=== PATIENT | female | born 1935 ===

== ENCOUNTER 2017-10-09 14:27 | Inpatient (IN) | payer MEDICARE ==
[~2017-10-09] VITALS: Ht 162.6 cm; Wt 58.1 kg
[2017-10-09 14:10] VITALS: BP 126/68
[2017-10-09] MEDS ORDERED: Z GUARD REMEDY PASTE 57 GM TUBE TOP PRN (14:45)
[2017-10-09] MEDS ORDERED: [UNRECOGNIZED DRUG - CODE] IV (16:41)
[2017-10-09] MEDS ORDERED: ACET-2154 PO (16:41)
[2017-10-09] MEDS ORDERED: HYDR20VI4 IVP (16:41)
[2017-10-09] MEDS ORDERED: MUPI22OI2 TP (16:41)
[2017-10-09] MEDS ORDERED: BALS60OI TP (16:41)
[2017-10-09] MEDS ORDERED: LEVE500P IV (16:41)
[2017-10-09] MEDS ORDERED: ONDA4TAB5 PO (16:41)
[2017-10-09] MEDS ORDERED: AMLO5TAB4 PO (16:41)
--- NOTE | 2017-10-09 17:32 | NUR ---
pt received from [facility] at 1410 in a gurney. pt vitals assessed and stable. received report from Laure RUDOLPH. pt had an fall incident, hitting her head resulting subdural hematoma. MRI was done a week ago showing subdural hematoma. pt fell on left side resulting left eye, hip, and head bruise. pt assessed and showed sever weakness on all four extremities. pt has aphasia and has swallowing difficulty. pt has a Hx of CVA Aphasia, Hypertension, dementia, left ankle fracture and DVT. Umbrella IVC filter placed on 10/08 due to pt having DVT. IVC intact no signs of bleeding. pt is allergic to dust mites. pt ambulated 2 feet with therapy, and pt is wearing afo on both feet. pt is incontinent during admission. diaper placed. pt has a son that stays overnight. all med recon and belongings done. placed in chart. photos taken and placed in chart. pt is known to have bradycardia but no recommendations for Pacemaker needed as per rehabilitation medicine physician. bed alarm on because pt seen to be getting up. instructed pt not to get up. pt understands but cannot verbalize needs at the time. will continue to monitor.
--- NOTE | 2017-10-09 18:45 | NUR ---
md penn made aware of meds for recon. awaiting for meds to be continued.
[2017-10-09 20:00] VITALS: BP 133/67
--- NOTE | 2017-10-09 21:41 | NUR ---
Called [facility] to f/u with patient medications. Dr. Emery financial institution manager. Awaiting call back at this time.
--- NOTE | 2017-10-09 21:50 | NUR ---
Dr. Emery called back and read back medications to MD. Will fax home meds form to Pharmacy for med reconciliation.
[2017-10-10 07:09] LABS: BASOPHILS % (AUTO) 0.4 % (0.0-2.0); EOSINOPHILS # (AUTO) 0.1 K/uL (0.0-0.7); EOSINOPHILS % (AUTO) 0.6 % (0.0-7.0); HEMATOCRIT 32.9 % (31.2-41.9); HEMOGLOBIN 11.4 g/dL (10.9-14.3); LYMPHOCYTES % (AUTO) 10.8 % (20.5-51.5); MEAN CORPUSCULAR HEMOGLOBIN 32.4 uug (24.7-32.8); MEAN CORPUSCULAR HGB CONC 35 g/dL (32.3-35.6); MEAN CORPUSCULAR VOLUME 93.3 fL (75.5-95.3); MONOCYTES % (AUTO) 11.1 % (0.0-11.0); NEUTROPHILS % (AUTO) 77.1 % (38.5-71.5); PLATELET COUNT (AUTO) 194 K/uL (179-408); RED BLOOD CELL COUNT(AUTO) 3.52 MIL/uL (3.63-4.92); WHITE BLOOD COUNT (AUTO) 9.1 K/uL (3.8-11.8)
[2017-10-10] MEDS ORDERED: HYDR-4075 PO (07:14)
[2017-10-10] MEDS ORDERED: LEVE500T20 PO (07:14)
[2017-10-10] MEDS ORDERED: ONDANSETRON HCL 4 MG TABLET PO PRN (07:15)
[2017-10-10] MEDS ORDERED: ACETAMINOPHEN 325 MG TABLET PO PRN (07:15)
[2017-10-10] MEDS ORDERED: HOME MED MISCELLANEOUS XX SCH (07:15)
[2017-10-10] MEDS ORDERED: hydrALAZINE HCL 10 MG TABLET PO PRN (07:15)
[2017-10-10 07:20] LABS: CARBON DIOXIDE 24 mmol/L (21-32); CHLORIDE 103 mmol/L (98-107); CHOLESTEROL 134 mg/dL (<200); CREATININE 0.7 mg/dL (0.6-1.3); GLUCOSE 121 mg/dL (74-106); HDL CHOLESTEROL 46 mg/dL (40-60); MAGNESIUM 1.7 mg/dL (1.8-2.4); PHOSPHOROUS 3.1 mg/dL (2.5-4.9); POTASSIUM 3.8 mmol/L (3.5-5.1); TRIGLYCERIDES 73 MG/DL (30-150); UREA NITROGEN, BLOOD 14 mg/dL (7-18)
[2017-10-10 08:57] VITALS: BP 174/72
[2017-10-10] MEDS ORDERED: MUPIROCIN 2% OINT 22 GM TUBE TP SCH (09:00)
[2017-10-10] MEDS: LEVETIRACETAM 500 MG TABLET PO SCH ×2 (09:24→17:37)
[2017-10-10] MEDS: AMLODIPINE 5 MG TABLET PO SCH (09:25)
--- NOTE | 2017-10-10 11:52 | NUR ---
Patient noted resting in bed , family (son) noted assisting with dressing/AM care, no facial cues of pain, patient is none verbal, no signs of distress noted, call light in reach, bed locked and in lowest position, all AM medications taken, bed alarm in place, all needs met at this time
--- NOTE | 2017-10-10 13:43 | NUR ---
INTERDISCIPLINARY TEAM CONFERENCE
[2017-10-10] MEDS: BENAZEPRIL HCL 5 MG TABLET PO SCH (14:42)
--- NOTE | 2017-10-10 19:30 | NUR ---
Pt resting comfortably in bed. Son at bedside. No acute distress noted. No signs or facial cues of pain. Safety measures maintained. Bed alarm on. Call light and personal belongings within reach. Will continue to monitor.
[2017-10-10] MEDS: MAGNESIUM OXIDE 400 MG TABLET PO SCH (20:11)
[2017-10-10 20:33] VITALS: BP 118/61
--- NOTE | 2017-10-11 06:04 | NUR ---
Pt slept comfortably at night. Meds given per MD's order. Pt has to be assisted when taking meds. Turned and repositioned. Changed diaper as needed. All needs attended to promptly. Will endorse to day shift RN. Continue to monitor.
[2017-10-11 08:00] VITALS: BP 130/64
--- NOTE | 2017-10-11 08:00 | NUR ---
patient noted resting bed with eyes closed, no facial cues of pain, no signs of distress noted, call light in reach, bed locked and in lowest position
[2017-10-11] MEDS: LEVETIRACETAM 500 MG TABLET PO SCH ×2 (08:47→21:25)
[2017-10-11] MEDS: AMLODIPINE 5 MG TABLET PO SCH (08:47)
[2017-10-11] MEDS: BENAZEPRIL HCL 5 MG TABLET PO SCH (08:47)
--- NOTE | 2017-10-11 18:17 | NUR ---
PATIENT LEFT FACILITY WITH FAMILY VIA WHEELCHAIR AND PRIVATE CARE AT 1630 FOR 4 HOUR LEAVE PASS, ORDER APPROVED BY MD BLOUNT
--- NOTE | 2017-10-11 18:35 | NUR ---
patient left facility before administration of keppra could be given, will endorse to scene shifter nurse
--- NOTE | 2017-10-11 21:07 | NUR ---
Received patient from family. Patient in no acute distress. Ushered patient safely to room. Placed safety in bed. Vital signs stable. Noted facial and left hip bruising. Patient has expressive aphasia. 2100 Medication given. Keppra was given late because patient went out with family. Safety initiated. Call light within reach. Bed alarm on. Bed is in low and locked position. Will closely monitor.
[2017-10-11] MEDS: MAGNESIUM OXIDE 400 MG TABLET PO SCH (21:25)
[2017-10-11 21:31] VITALS: BP 124/78
--- NOTE | 2017-10-12 05:41 | NUR ---
Patient slept intermittently t/o shift. No acute distress noted. Vital signs stable. Safety and comfort measures maintained t/o shift. All meds given as ordered. All needs met.
[2017-10-12 08:00] VITALS: BP 122/62
--- NOTE | 2017-10-12 08:30 | NUR ---
Received patient, awake, alert x1-2. Still non-verbal. Assisted with feeding. No S/S of aspiration, tolerated diet well. Not in apparent pain or distress.
[2017-10-12] MEDS: BENAZEPRIL HCL 5 MG TABLET PO SCH (08:49)
[2017-10-12] MEDS: AMLODIPINE 5 MG TABLET PO SCH (08:49)
[2017-10-12] MEDS: LEVETIRACETAM 500 MG TABLET PO SCH ×2 (08:49→18:12)
--- NOTE | 2017-10-12 10:54 | NUR ---
Patient resting in bed comfortably. Baseline LOC, bed alarm on, in locked position. Call light within reach.
--- NOTE | 2017-10-12 13:26 | NUR ---
Son requesting patient to go out on pass for family reunion, since one family member will be coming out of state. Discussed risks with son. Son aware and still wants to take patient to reunion. Informed Dr. David of request and Dr edd king on pass for for 4 hours. Forms completed by son.
--- NOTE | 2017-10-12 13:45 | NUR ---
Out on pass accompanied by son per wheel chair. Vital signs stable, son aware of 4 hours limit.
--- NOTE | 2017-10-12 14:15 | NUR ---
Received mid shift report from RONNI Zarate. Patient is out on pass for family reunion. ETA of patient to ARU is 1730.
--- NOTE | 2017-10-12 18:05 | NUR ---
Patient back to the unit, accompanied/transported by son/family via wheelchair. Patient is alert, in no distress. Supervised dinner intake, swallowing precaution, no aspiration noted. Safety measures in place, bed alarm on.
[2017-10-12 19:30] VITALS: BP 114/51
--- NOTE | 2017-10-12 20:30 | NUR ---
Received pt lying on bed comfortably, asleep but arouses easily with no signs/symptoms of distress noted. No facial grimacing or signs of pain. Breathing even and unlabored with normal respirations. All due meds given as ordered and well tolerated, no signs of aspiration. Call light placed within reach. Vital signs stable. Side rails up x2. Bed locked and in lowest position. All needs anticipated.
[2017-10-12] MEDS: MAGNESIUM OXIDE 400 MG TABLET PO SCH (20:40)
--- NOTE | 2017-10-13 06:09 | NUR ---
patient slept well throughout the shift with no signs of any distress. No complaints of pain or discomfort. No SOB. Call light placed within reach. Kept clean, dry and comfortable. All needs attended
[2017-10-13 07:25] VITALS: BP 126/62
--- NOTE | 2017-10-13 08:03 | NUR ---
Received patient awake in bed. Baseline LOC, alert x1, obeys commands. Not in apparent distress, no pain noted. Will continue to monitor.
[2017-10-13] MEDS: AMLODIPINE 5 MG TABLET PO SCH (08:37)
[2017-10-13] MEDS: LEVETIRACETAM 500 MG TABLET PO SCH ×2 (08:37→17:51)
[2017-10-13] MEDS: BENAZEPRIL HCL 5 MG TABLET PO SCH (08:37)
[2017-10-13] MEDS: BOOST PLUS 237 ML LIQUID (RICH CHOCOLATE) PO SCH (17:53)
--- NOTE | 2017-10-13 18:05 | NUR ---
With family at bed side, tolerated dinner well. No S/S of aspiration
--- NOTE | 2017-10-13 19:25 | NUR ---
Pt resting comfortably in bed. AAO x1. Family at bedside. Family concern about breathing. VS stable. Lungs clear through auscultation. Family stated that they fed the pt heavy meal, was eating fast, and lay down flat after. Positioned the bed to semi- chacon's. Education provided to family and pt about aspiration precaution. No acute distress noted. No c/o pain or discomfort. Safety measures maintained. Call light and personal belongings within reach. Will continue to monitor.
[2017-10-13 20:15] VITALS: BP 127/65
[2017-10-13] MEDS: MAGNESIUM OXIDE 400 MG TABLET PO SCH (21:17)
--- NOTE | 2017-10-14 05:50 | NUR ---
Pt slept comfortably at night. VSS. Meds given per MD's order. Aspiration precaution. Diaper changed as needed. All needs attended to promptly. Will endorse to day shift RN. Continue to monitor.
[2017-10-14 07:25] VITALS: BP 106/58
[2017-10-14] MEDS: AMLODIPINE 5 MG TABLET PO SCH (08:44)
[2017-10-14] MEDS: BENAZEPRIL HCL 5 MG TABLET PO SCH (08:44)
[2017-10-14] MEDS: LEVETIRACETAM 500 MG TABLET PO SCH ×2 (08:44→17:07)
[2017-10-14] MEDS: BOOST PLUS 237 ML LIQUID (RICH CHOCOLATE) PO SCH ×2 (08:46→17:07)
--- NOTE | 2017-10-14 12:56 | NUR ---
WOUND CARE CONSULT: PT PRESENTS WITH DEEP TISSUE INJURY WHICH IS INTACT, TO SACRUM, PRESENT ON ADMISSION PHOTO. RECOMMENDATIONS MADE FOR SKIN PROTECTION AND WOUND CARE. DISCUSSED WITH NURSING STAFF. CURRENT ZACK SCORE IS 14. PT HAS LOWER EXTREMITY BRACE WHICH SHE WEARS WHEN UP WITH P.T. BILATERAL CALLUSES TO LATERAL FEET NOTED. WILL SEE PRN. GUTHRIE IN AGREEMENT WITH PLAN OF CARE. Addendum: 10/14/17 at 1258 by ARTIE CASTRO RN Amended: Links added.
--- NOTE | 2017-10-14 19:45 | NUR ---
Received patient in bed with family at bedside. Vital signs taken and recorded. No signs of any acute respiratory distress. Breathing even and nonlabored. Pertinent assessment done. Safety measures provided. Call light in reach. will monitor the patient.
[2017-10-14 20:58] VITALS: BP 135/75
[2017-10-14] MEDS: MAGNESIUM OXIDE 400 MG TABLET PO SCH (21:19)
[2017-10-15 08:00] VITALS: BP 148/68
[2017-10-15] MEDS: LEVETIRACETAM 500 MG TABLET PO SCH ×2 (08:51→21:30)
[2017-10-15] MEDS: BENAZEPRIL HCL 5 MG TABLET PO SCH (08:51)
[2017-10-15] MEDS: PATIENT MAY USE OWN MED- MD OK PO SCH (08:52)
[2017-10-15] MEDS: BOOST PLUS 237 ML LIQUID (RICH CHOCOLATE) PO SCH ×2 (08:52→21:32)
[2017-10-15] MEDS: AMLODIPINE 5 MG TABLET PO SCH (08:59)
--- NOTE | 2017-10-15 10:26 | NUR ---
PATIENT NOTED RESTING I BED WITH EYES CLOSED, NO FACIAL CUES OF PAIN NO SIGNS OF DISTRESS NOTED, CALL LIGHT IN REACH, BED LOCKED AND IN LOWEST POSITION, X2 BED RAILS, ALL NEEDS MET AT THIS TIME
--- NOTE | 2017-10-15 11:00 | NUR ---
While being assisted by PT, OT, and TEST CONDUCTOR from shower chair to wheelchair, patient presented with skin tear to left forearm, steri strips place as well as fadumoed MD Boo lindsey and family notified of findings
--- NOTE | 2017-10-15 17:42 | NUR ---
patient out on pass with family at 1630, expected back at 2029, via wheelchair and private car
--- NOTE | 2017-10-15 19:56 | NUR ---
Pt still out on pass at this time
[2017-10-15 21:30] VITALS: BP 134/66
[2017-10-15] MEDS: MAGNESIUM OXIDE 400 MG TABLET PO SCH (21:30)
--- NOTE | 2017-10-15 21:40 | NUR ---
Pt came back in the unit at 2110 accompanied by family. Meds scheduled at 1700 and 2100 given. Vital signs stable. No acute distress noted. No c/o pain or discomfort. Safety measures maintained. Call light and personal belongings within reach. Will continue to monitor.
--- NOTE | 2017-10-16 05:53 | NUR ---
Pt slept comfortably at night. VSS. Meds given per MD's order. All needs attended to promptly. Turned and repositioned. Diaper changed as needed. Will endorse to day shift RN. Continue to monitor.
--- NOTE | 2017-10-16 07:26 | NUR ---
Patient noted resting in bed with eyes closed arouses easily, no facial cues of pain noted, no distress noted, call light in reach, bed locked and in lowest position, x 2 bed rails, bed alarm in place, all needs met at this time
[2017-10-16 08:27] VITALS: BP 112/59
[2017-10-16] MEDS: PATIENT MAY USE OWN MED- MD OK PO SCH (08:29)
[2017-10-16] MEDS: BENAZEPRIL HCL 5 MG TABLET PO SCH (08:29)
[2017-10-16] MEDS: LEVETIRACETAM 500 MG TABLET PO SCH ×2 (08:29→17:17)
[2017-10-16] MEDS: BOOST PLUS 237 ML LIQUID (RICH CHOCOLATE) PO SCH ×2 (08:30→17:18)
[2017-10-16] MEDS: AMLODIPINE 5 MG TABLET PO SCH (08:30)
--- NOTE | 2017-10-16 13:03 | NUR ---
patient noted making a rattling noise while eating breakfast, speech therapist notified with orders to put patient on nectar thick liquids, MD Ricardo notified with orders to do a 1 view chest X-Ray, will continue to monitor
[2017-10-16 20:00] VITALS: BP 117/76
--- NOTE | 2017-10-16 20:00 | NUR ---
Pt sitting down at bedside. Daughter in the room. Dr. David made rounds. Pt's daughter notified MD that pt seems to have swelling around the back. Went to look at the back and Dr. David said that it is a fat, not swelling. No acute distress noted. No signs of pain or discomfort. Aspiration precaution. On thickened liquids. Safety measures maintained. Call light and personal belongings within reach. Will continue to monitor.
[2017-10-16] MEDS: MAGNESIUM OXIDE 400 MG TABLET PO SCH (20:31)
--- NOTE | 2017-10-17 05:28 | NUR ---
Pt slept at night. Meds given per MD's order. All needs attended to promptly. Diaper changed as needed. Aspiration precaution maintained. On nectar thick liquids. Will endorse to day shift RN. Continue to monitor.
[2017-10-17 08:00] VITALS: BP 141/58
[2017-10-17] MEDS: BOOST PLUS 237 ML LIQUID (RICH CHOCOLATE) PO SCH ×2 (08:55→17:29)
[2017-10-17] MEDS: LEVETIRACETAM 500 MG TABLET PO SCH ×2 (09:00→17:29)
[2017-10-17] MEDS: BENAZEPRIL HCL 5 MG TABLET PO SCH (09:02)
[2017-10-17] MEDS: AMLODIPINE 5 MG TABLET PO SCH (09:02)
[2017-10-17] MEDS: PATIENT MAY USE OWN MED- MD OK PO SCH (09:03)
--- NOTE | 2017-10-17 10:37 | NUR ---
SBAR report received, board updated. Pt assessed, no acute distress noted. Diaper changed, dressed, and compression socks applied. Pt assisted to sit up in wheelchair to eat breakfast. Pt compliant with routine morning medications, aspiration precautions in place, and on nectar thick liquids. Call light placed within reach. Pt demonstrates willingness to comply with therapies as scheduled. All comfort and safety measures implemented. Will continue to monitor.
--- NOTE | 2017-10-17 13:47 | NUR ---
INTERDISCIPLINARY TEAM CONFERENCE
--- NOTE | 2017-10-17 19:01 | NUR ---
With son at bedside. No in apparent pain. Tolerated dinner well. No s/s of aspiration
[2017-10-17 19:30] VITALS: BP 129/54
[2017-10-17] MEDS: MAGNESIUM OXIDE 400 MG TABLET PO SCH (20:20)
--- NOTE | 2017-10-17 20:30 | NUR ---
Received pt lying on bed comfortably, asleep with no signs/symptoms of distress noted. No facial grimacing or any signs of pain noted. No SOB. All due meds given as ordered and well tolerated with no signs of aspiration noted. Safety and fall precautions observed and maintained. Call light within reach. All needs attended. Will continue to monitor.
--- NOTE | 2017-10-18 05:28 | NUR ---
Patient slept well throughout the shift with no apparent distress noted. No signs of pain or discomfort. Frequently checked for safety. Incontinent care rendered. Call light placed within reach. All needs attended.
[2017-10-18 08:13] VITALS: BP 147/76
[2017-10-18] MEDS: LEVETIRACETAM 500 MG TABLET PO SCH ×2 (08:53→17:38)
[2017-10-18] MEDS: AMLODIPINE 5 MG TABLET PO SCH (08:54)
[2017-10-18] MEDS: PATIENT MAY USE OWN MED- MD OK PO SCH (08:54)
[2017-10-18] MEDS: BENAZEPRIL HCL 5 MG TABLET PO SCH (08:54)
[2017-10-18] MEDS: BOOST PLUS 237 ML LIQUID (RICH CHOCOLATE) PO SCH ×2 (08:55→17:42)
--- NOTE | 2017-10-18 14:31 | NUR ---
Patient is an 82 y/o female with PMH of right ankle fracture,old CVA,DVT,HTN present due to fall, Pt was medically stable and transferred to ARU due to functional impairment and gait dysfunction po intake is good,pt is eating 75-100% of meals,per MD order pt is receiving boost BID,on nectar thick diet, spoke with the nurse, about the nectar thick pks to mix with boost, RN is aware Anthropometry:current wt is 128lb,BMI 22-wnl bowel sound present /incontinent skin: left orbital bruising,right hand scab,left hip bruise labs:10/10 RBC-3.5(l),NA-134(l),glucose-121(h),magnesium-1.7(l) medication: [facility], No nutrition diagnosis at this time, will monitor PO intake,wt, and new labs Addendum: 10/18/17 at [address] Amended: Links added.
--- NOTE | 2017-10-18 18:28 | NUR ---
Pt ate dinner with daughter in dinning room. Pt compliant with all routine medication administration. All needs attended to. Will continue to monitor and endorse to oncoming diesel roller operator.
--- NOTE | 2017-10-18 19:30 | NUR ---
Received patient in bed. Alert and responsive. Patient responds verbally, but unable to understand what she is trying to say. No c/o pain and discomfort. No acute distress. No SOB. On RA. Kept clean and dry. Compression stockings are on. all needs attended to promptly. Call light within reach. Will continue to monitor.
[2017-10-18] MEDS: MAGNESIUM OXIDE 400 MG TABLET PO SCH (21:48)
--- NOTE | 2017-10-19 06:22 | NUR ---
Patient slept comfortably throughout the night. No c/o pain and discomfort. No facial grimacing noted. No acute distress. No SOB. Diaper changed. Pericare provided. Kept clean and dry. All needs attended to promptly. Call light within reach. Will continue to monitor.
[2017-10-19 07:30] VITALS: BP 139/69
[2017-10-19] MEDS: BENAZEPRIL HCL 5 MG TABLET PO SCH (08:56)
[2017-10-19] MEDS: LEVETIRACETAM 500 MG TABLET PO SCH ×2 (08:56→21:22)
[2017-10-19] MEDS: BOOST PLUS 237 ML LIQUID (RICH CHOCOLATE) PO SCH ×2 (08:57→17:00)
[2017-10-19] MEDS: PATIENT MAY USE OWN MED- MD OK PO SCH (09:07)
[2017-10-19] MEDS: AMLODIPINE 5 MG TABLET PO SCH (09:07)
--- NOTE | 2017-10-19 18:03 | NUR ---
family called. 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 family tried contacting company. company does not responce. phone that was lost was a [employer]. phone number [phone]. will try to contact.
--- NOTE | 2017-10-19 19:00 | NUR ---
Received report from day shift nurse. Patient still OOP at this time. Awaiting return for patient.
--- NOTE | 2017-10-19 19:30 | NUR ---
Patient returned from OOP with family in stable condition. Assisted back to bed. Vital signs stable. Diaper changed. Pericare provided. Kept clean and dry. All needs attended to promptly. Call light within reach. Will continue to monitor.
[2017-10-19 20:00] VITALS: BP 129/77
--- NOTE | 2017-10-19 21:12 | NUR ---
1700 Keppra given at this time because was not given afternoon dose. Family is aware and requested it to be given. Patient tolerated medication.
[2017-10-19] MEDS: MAGNESIUM OXIDE 400 MG TABLET PO SCH (21:22)
--- NOTE | 2017-10-20 07:00 | NUR ---
Patient slept comfortably throughout the night. No c/o pain and discomfort. No facial grimacing noted. No acute distress. No SOB. Pericare care provided. Kept clean and dry. All needs attended to promptly. Call light within reach. Will continue to monitor.
[2017-10-20] MEDS: PATIENT MAY USE OWN MED- MD OK PO SCH (09:00)
[2017-10-20] MEDS: LEVETIRACETAM 500 MG TABLET PO SCH ×2 (09:04→17:22)
[2017-10-20] MEDS: BENAZEPRIL HCL 5 MG TABLET PO SCH (09:06)
[2017-10-20] MEDS: BOOST PLUS 237 ML LIQUID (RICH CHOCOLATE) PO SCH ×2 (09:06→17:25)
[2017-10-20] MEDS: AMLODIPINE 5 MG TABLET PO SCH (09:06)
--- NOTE | 2017-10-20 19:01 | NUR ---
Pt sitting up in wheelchair, daughter visiting at this time. VS WNL. All comfort and safety measures implemented. Pain or discomfort noted on this shift. Call light and personal items placed within reach. Pt is clean and dry. Will continue to monitor and endorse to oncoming caustic cresylate shift superintendent.
[2017-10-20 19:30] VITALS: BP 129/78
--- NOTE | 2017-10-20 19:30 | NUR ---
Patient in seated in wheelchair with family at bedside. Vital signs taken and recorded. No signs of any acute respiratory distress. Breathing even and nonlabored. Pertinent assessment done. Safety measures provided. Call light in reach. will monitor the patient.
[2017-10-20] MEDS: MAGNESIUM OXIDE 400 MG TABLET PO SCH (21:29)
[2017-10-20] MEDS: GUAIFENESIN/DEXTROMETHORPHAN 5 ML UDC PO PRN (23:50)
[2017-10-21 08:00] VITALS: BP 165/86
[2017-10-21] MEDS: PATIENT MAY USE OWN MED- MD OK PO SCH (09:00)
[2017-10-21] MEDS: LEVETIRACETAM 500 MG TABLET PO SCH ×2 (09:30→17:17)
[2017-10-21] MEDS: GUAIFENESIN/DEXTROMETHORPHAN 5 ML UDC PO PRN ×3 (09:30→21:07)
[2017-10-21] MEDS: BENAZEPRIL HCL 5 MG TABLET PO SCH (09:33)
[2017-10-21] MEDS: AMLODIPINE 5 MG TABLET PO SCH (09:41)
[2017-10-21] MEDS: BOOST PLUS 237 ML LIQUID (RICH CHOCOLATE) PO SCH ×2 (09:53→17:20)
[2017-10-21] MEDS: ALBUTEROL SULFATE 2.5 MG/3 ML NEBU NEB PRN (12:12)
--- NOTE | 2017-10-21 12:39 | NUR ---
SBAR report received, board updated. Pt assessed, awake, alert, and remains non-verbal, yet able to make needs known. Pt repeatedly clears throat and slight non-productive cough present, denies pain. PRN medication administered as ordered. Pt compliant with medication administration, taking pills crushed in apple sauce, but refusing to eat more than 10% breakfast. VS WNL. Pt sitting up in chair for both breakfast and lunch, with aspiration precautions in place. Pt seen by MD, new orders received, and PRN breathing Tx provided r/t ease of expectoration. Lung sounds clear, unlabored breathing. All comfort and safety needs met. Call light and personal belongings within reach. Will continue to monitor.
--- NOTE | 2017-10-21 18:33 | NUR ---
Pt sitting up in chair for dinner, with daughter visiting at the bedside. Pt compliant with routinely scheduled medication administration. No distress or SOB at this time. PRN cough medication administered as necessary to manage control of cough. All safety, comfort, and aspiration precautions implemented. Call light and personal belongings placed within reach. Will continue to monitor and endorse to oncoming pet stylist.
--- NOTE | 2017-10-21 19:25 | NUR ---
Received patient in bed, awake, and family at bedside. Vital signs taken and recorded. No acute distress. No SOB. Safety measures provided. All needs attended to promptly. Call light within reach. Will continue to monitor.
[2017-10-21 20:11] LABS: BASOPHILS # (AUTO) 0.1 K/uL (0.0-8.0); BASOPHILS % (AUTO) 0.4 % (0.0-2.0); EOSINOPHILS # (AUTO) 0.1 K/uL (0.0-0.7); EOSINOPHILS % (AUTO) 0.4 % (0.0-7.0); HEMATOCRIT 39.3 % (31.2-41.9); HEMOGLOBIN 13.2 g/dL (10.9-14.3); LYMPHOCYTES # (AUTO) 0.8 K/uL (20.0-40.0); LYMPHOCYTES % (AUTO) 5.4 % (20.5-51.5); MEAN CORPUSCULAR HEMOGLOBIN 30.9 uug (24.7-32.8); MEAN CORPUSCULAR HGB CONC 34 g/dL (32.3-35.6); MEAN CORPUSCULAR VOLUME 91.9 fL (75.5-95.3); MONOCYTES # (AUTO) 1.1 K/uL (2.0-10.0); MONOCYTES % (AUTO) 7.2 % (0.0-11.0); NEUTROPHILS # (AUTO) 13.4 K/uL (1.8-8.9); NEUTROPHILS % (AUTO) 86.6 % (38.5-71.5); PLATELET COUNT (AUTO) 383 K/uL (179-408); RED BLOOD CELL COUNT(AUTO) 4.28 MIL/uL (3.63-4.92); WHITE BLOOD COUNT (AUTO) 15.5 K/uL (3.8-11.8)
[2017-10-21 20:14] LABS: CARBON DIOXIDE 26 mmol/L (21-32); CHLORIDE 97 mmol/L (98-107); CREATININE 0.8 mg/dL (0.6-1.3); GLUCOSE 226 mg/dL (74-106); POTASSIUM 4.6 mmol/L (3.5-5.1); UREA NITROGEN, BLOOD 26 mg/dL (7-18)
[2017-10-21 20:55] VITALS: BP 131/90
[2017-10-21 21:00] VITALS: BP 131/90
[2017-10-21] MEDS: MAGNESIUM OXIDE 400 MG TABLET PO SCH (21:07)
--- NOTE | 2017-10-22 00:17 | NUR ---
Relayed chest Xray result to Dr. Flores, with new orders of chest xray, Levaquin 500mg PO noted and carried out. Will continue to monitor the patient.
[2017-10-22] MEDS ORDERED: LEVOFLOXACIN 500 MG TABLET PO SCH (00:30)
[2017-10-22] MEDS: ALBUTEROL SULFATE 2.5 MG/3 ML NEBU NEB PRN (04:18)
[2017-10-22] MEDS: GUAIFENESIN/DEXTROMETHORPHAN 5 ML UDC PO PRN (04:55)
--- NOTE | 2017-10-22 04:58 | NUR ---
Patient noted with coughing episodes again. O2 sat checked 90%. Informed RT, PRN nebulization given. Robitussin DM given after nebulization. Will continue to monitor the patient.
[2017-10-22 07:00] VITALS: BP 118/82
[2017-10-22] MEDS: LEVETIRACETAM 500 MG TABLET PO SCH ×2 (08:36→17:32)
[2017-10-22] MEDS: AMLODIPINE 5 MG TABLET PO SCH (08:38)
[2017-10-22] MEDS: BENAZEPRIL HCL 5 MG TABLET PO SCH (08:43)
[2017-10-22] MEDS: PATIENT MAY USE OWN MED- MD OK PO SCH (08:43)
[2017-10-22] MEDS: BOOST PLUS 237 ML LIQUID (RICH CHOCOLATE) PO SCH ×2 (08:43→17:34)
--- NOTE | 2017-10-22 10:01 | NUR ---
SBAR report received, board updated. Pt assessed, no SOB or acute distress noted. Call light placed within reach. Pt sitting in high fowlers, assisted to eat breakfast, with aspiration precautions in place. Pt compliant with all routine medication administration with pills crushed. VS WNL. Bed in low, locked position with side rails up x2. All needs attended to. Will continue to monitor.
--- NOTE | 2017-10-22 18:43 | NUR ---
No distress or SOB noted this shift. Aspiration precautions followed. All safety and comfort measures implemented. Call light within reach. Will continue to monitor and endorse to oncoming production supervisor off shift.
--- NOTE | 2017-10-22 20:30 | NUR ---
Received pt lying comfortably with HOB elevated, no signs/symptoms of distress noted. No facial grimacing, moaning, guarding or any signs of pain noted. No coughing and SOB noted. Son at bedside. All due meds given as ordered and well tolerated, no signs/symptoms of aspiration noted. Kept clean, dry and comfortable. Vital signs stable. Call light within reach. All needs attended.
[2017-10-22] MEDS: LEVOFLOXACIN 500 MG TABLET PO SCH (20:43)
[2017-10-22] MEDS: MAGNESIUM OXIDE 400 MG TABLET PO SCH (20:43)
[2017-10-22 20:44] VITALS: BP 117/65
--- NOTE | 2017-10-23 05:57 | NUR ---
Pt slept well throughout the shift with no apparent distress noted. No signs of pain. No cough/SOB noted. HOB elevated. Aspiration precautions maintained. Incontinent care rendered. turned and repositioned pt. Call light within reach. All needs attended.
[2017-10-23 08:00] VITALS: BP_SYST 128; BP_SYST 149; BP_DIAS 66; BP_DIAS 67
[2017-10-23] MEDS: LEVETIRACETAM 500 MG TABLET PO SCH ×2 (08:24→17:21)
[2017-10-23] MEDS: BENAZEPRIL HCL 5 MG TABLET PO SCH (08:25)
[2017-10-23] MEDS: AMLODIPINE 5 MG TABLET PO SCH (08:28)
[2017-10-23] MEDS: BOOST PLUS 237 ML LIQUID (RICH CHOCOLATE) PO SCH ×2 (08:29→17:00)
[2017-10-23] MEDS: PATIENT MAY USE OWN MED- MD OK PO SCH (09:00)
--- NOTE | 2017-10-23 10:47 | NUR ---
HOME MEDICATION MED NOT AVAILABLE THE SUPPLY THE THE FAMILY BROUGHT IN IS ACCORDING TO PHARMACY.
--- NOTE | 2017-10-23 19:35 | NUR ---
Patient in bed, awake and son at bedside. Vital signs taken and recorded. Pertinent assessment done. No sob, or acute distress noted. Safety measures provided. Bed placed in low position. Bed alarm on. Call light within reach. will continue to monitor patient.
[2017-10-23 19:40] VITALS: BP 137/72
[2017-10-23] MEDS: LEVOFLOXACIN 500 MG TABLET PO SCH (21:56)
[2017-10-23] MEDS: MAGNESIUM OXIDE 400 MG TABLET PO SCH (21:56)
[2017-10-24] MEDS: LEVETIRACETAM 500 MG TABLET PO SCH ×2 (08:14→15:34)
[2017-10-24] MEDS: BENAZEPRIL HCL 5 MG TABLET PO SCH (08:15)
[2017-10-24] MEDS: AMLODIPINE 5 MG TABLET PO SCH (08:16)
[2017-10-24] MEDS: PATIENT MAY USE OWN MED- MD OK PO SCH (09:00)
[2017-10-24 10:57] VITALS: BP 111/64
--- NOTE | 2017-10-24 20:00 | NUR ---
Received pt lying comfortably with HOB elevated, alert and awake with no signs of distress noted. No facial grimacing, moaning, guarding or any signs of pain noted. No cough or SOB. All due meds given as ordered, no signs of aspiration. Pt able to tolerate well. Kept clean, dry and comfortable. Vital signs stable. Call light within reach. All needs attended.
[2017-10-24] MEDS: MAGNESIUM OXIDE 400 MG TABLET PO SCH (20:21)
[2017-10-24] MEDS: LEVOFLOXACIN 500 MG TABLET PO SCH (20:21)
[2017-10-24 20:24] VITALS: BP 134/76
--- NOTE | 2017-10-25 05:54 | NUR ---
Pt slept well throughout the shift. No acute distress noted. No signs/symptoms of pain. Breathing even and unlabored with normal respirations. Incontinent care rendered. Turned and repositioned pt. Frequently checked for safety. Call light within reach. All needs attended.
--- NOTE | 2017-10-25 07:30 | NUR ---
RECEIVED REPORT FROM LEAK PATCHER NURSE, PATIENT IN BED ASLEEP, NO DISTRESS NOTED, BED IN LOW POSITION, SIDE RAILS UP X2. CALL LIGHT IN REACH.
[2017-10-25 08:36] VITALS: BP 119/74
[2017-10-25] MEDS: PATIENT MAY USE OWN MED- MD OK PO SCH (09:00)
[2017-10-25] MEDS: AMLODIPINE 5 MG TABLET PO SCH (09:45)
[2017-10-25] MEDS: GUAIFENESIN/DEXTROMETHORPHAN 5 ML UDC PO PRN (09:45)
[2017-10-25] MEDS: BENAZEPRIL HCL 5 MG TABLET PO SCH (09:45)
[2017-10-25] MEDS: LEVETIRACETAM 500 MG TABLET PO SCH ×2 (09:45→17:34)
--- NOTE | 2017-10-25 18:54 | NUR ---
PATIENT HAS BEEN COOPERATIVE WITH CARE, UNABLE TO MAKE NEEDS KNOWN VERBALLY. PATIENT IS IN BED, NO DISTRESS NOTED AT THIS TIME, BED IN LOW POSITION, SIDE RAILS UP X2.
[2017-10-25 19:30] VITALS: BP 136/87
--- NOTE | 2017-10-25 20:11 | NUR ---
Received pt lying comfortably with HOB elevated, alert and awake with no apparent distress. No facial grimacing, moaning, guarding or any signs of pain noted. Breathing even and unlabored wtih normal respirations. All due meds given as ordered and well tolerated. Incontinent care rendered. Vital signs stable. Call light within reach. All needs anticipated
[2017-10-25] MEDS: MAGNESIUM OXIDE 400 MG TABLET PO SCH (20:39)
[2017-10-26 07:43] LABS: BASOPHILS # (AUTO) 0.1 K/uL (0.0-8.0); BASOPHILS % (AUTO) 0.7 % (0.0-2.0); EOSINOPHILS # (AUTO) 0.2 K/uL (0.0-0.7); EOSINOPHILS % (AUTO) 3.2 % (0.0-7.0); HEMATOCRIT 35.5 % (31.2-41.9); HEMOGLOBIN 12.2 g/dL (10.9-14.3); LYMPHOCYTES % (AUTO) 12.9 % (20.5-51.5); MEAN CORPUSCULAR HEMOGLOBIN 31.8 uug (24.7-32.8); MEAN CORPUSCULAR HGB CONC 34 g/dL (32.3-35.6); MEAN CORPUSCULAR VOLUME 92.8 fL (75.5-95.3); MONOCYTES # (AUTO) 0.8 K/uL (2.0-10.0); NEUTROPHILS # (AUTO) 5.7 K/uL (1.8-8.9); NEUTROPHILS % (AUTO) 73.2 % (38.5-71.5); PLATELET COUNT (AUTO) 340 K/uL (179-408); RED BLOOD CELL COUNT(AUTO) 3.83 MIL/uL (3.63-4.92)
[2017-10-26 07:57] LABS: WHITE BLOOD COUNT (AUTO) 7.8 K/uL (3.8-11.8)
[2017-10-26 08:02] LABS: ALANINE AMINOTRANSFERASE 71 U/L (14-59); ALKALINE PHOSPHATASE 159 U/L (50-136); ASPARTATE AMINOTRANSFERASE 24 U/L (15-37); BILIRUBIN,TOTAL 0.4 mg/dL (0.2-1.0); CARBON DIOXIDE 25 mmol/L (21-32); CHLORIDE 106 mmol/L (98-107); CREATININE 0.7 mg/dL (0.6-1.3); GLUCOSE 134 mg/dL (74-106); MAGNESIUM 2.2 mg/dL (1.8-2.4); PHOSPHOROUS 3.5 mg/dL (2.5-4.9); POTASSIUM 4.1 mmol/L (3.5-5.1); TOTAL PROTEIN, SERUM 6.4 g/dL (6.4-8.2); UREA NITROGEN, BLOOD 18 mg/dL (7-18)
[2017-10-26 08:35] VITALS: BP 134/83
[2017-10-26] MEDS: PATIENT MAY USE OWN MED- MD OK PO SCH (09:00)
[2017-10-26] MEDS: AMLODIPINE 5 MG TABLET PO SCH (10:12)
[2017-10-26] MEDS: LEVETIRACETAM 500 MG TABLET PO SCH ×2 (10:13→21:01)
[2017-10-26] MEDS: BENAZEPRIL HCL 5 MG TABLET PO SCH (10:13)
[2017-10-26 19:30] VITALS: BP 114/84
[2017-10-26] MEDS: MAGNESIUM OXIDE 400 MG TABLET PO SCH (21:01)
--- NOTE | 2017-10-26 21:30 | NUR ---
Pt came back from out on pass at 2024 with son. MEHUL. No acute distress noted. No signs of pain noted. Assisted pt to the bathroom and helped get her comfortable in bed. 1700 Keppra scheduled dose given. Safety measures maintained. Call light and personal belongings within reach. Will continue to monitor.
[2017-10-27 08:03] VITALS: BP 112/61
[2017-10-27 08:36] VITALS: BP 112/61
[2017-10-27] MEDS: LEVETIRACETAM 500 MG TABLET PO SCH (08:36)
[2017-10-27] MEDS: BENAZEPRIL HCL 5 MG TABLET PO SCH (08:36)
[2017-10-27] MEDS: AMLODIPINE 5 MG TABLET PO SCH (08:36)
[2017-10-27] MEDS: PATIENT MAY USE OWN MED- MD OK PO SCH (08:37)
--- NOTE | 2017-10-27 14:12 | NUR ---
D/C NOTE SON TAKING HER TO [facility]. REPORT GIVEN TO ANI RUDOLPH. D/C INSTRUCTIONS PROVIDED TO SON. D/C ORDERS AND SKIN PICS TAKEN. SKIN INTACT ON D/C NO OPEN AREAS NOTED
== END 2017-10-27 13:40 | DRG 950 ==
PROVIDERS: ADMIT Physical Medicine & Rehabilitation Pain Medicine; ATTEND Physical Medicine & Rehabilitation Pain Medicine
DX: S06.5X9D Traumatic subdural hemorrhage with loss of consciousness of unspecified duration, subsequent encounter (principal); F03.90 Unspecified dementia, unspecified severity, without behavioral disturbance, psychotic disturbance, mood disturbance, and anxiety; G60.0 Hereditary motor and sensory neuropathy; J98.4 Other disorders of lung; I10 Essential (primary) hypertension; S06.6X9D Traumatic subarachnoid hemorrhage with loss of consciousness of unspecified duration, subsequent encounter; S06.359D Traumatic hemorrhage of left cerebrum with loss of consciousness of unspecified duration, subsequent encounter; V00.141D Fall from scooter (nonmotorized), subsequent encounter; Z86.718 Personal history of other venous thrombosis and embolism; R26.9 Unspecified abnormalities of gait and mobility; R53.81 Other malaise; Z86.711 Personal history of pulmonary embolism; R29.6 Repeated falls; Z82.49 Family history of ischemic heart disease and other diseases of the circulatory system; Z86.73 Personal history of transient ischemic attack (TIA), and cerebral infarction without residual deficits; R05 Cough; S82.891S Other fracture of right lower leg, sequela; X58.XXXS Exposure to other specified factors, sequela; Q66.7 Congenital pes cavus
CPT/HCPCS: 36415; 70030-TC; 71045; 83735; 84100; 85025; 92507; 92523; 92526; 94640; 94664; 97110; 97112; 97116; 97530; 97535

== ENCOUNTER 2017-11-20 10:02 | Outpatient (CLI) | payer MEDICARE ==
[~2017-11-20 10:02] MED LIST: ACET-2154 PO; AMLO5TAB4 PO; BALS60OI TP; HYDR-4075 PO; LEVE500T20 PO; MUPI22OI2 TP; ONDA4TAB5 PO
[2017-11-20] MEDS ORDERED: BARIUM SULFATE 148 GM SUSP.RECON PO ONE (10:03)
[2017-11-20] MEDS ORDERED: BARIUM SULFATE 240 ML ORAL.SUSP PO ONE (10:03)
== END 2017-11-20 23:59 | disposition home or self-care (01) ==
LOC: RAD 10:02
DX: R13.10 Dysphagia, unspecified (principal); I82.409 Acute embolism and thrombosis of unspecified deep veins of unspecified lower extremity; S06.5X0D Traumatic subdural hemorrhage without loss of consciousness, subsequent encounter; X58.XXXD Exposure to other specified factors, subsequent encounter; Z95.828 Presence of other vascular implants and grafts
CPT/HCPCS: 74230; 92611